=== PATIENT | female | born 1955 | race Caucasian/White ===

== ENCOUNTER 2018-08-27 09:29 | Day surgery (SDC) | payer BC, OTHER ==
[~2018-08-27 09:29] MED LIST: PROPOFOL INJ 200 MG/20 ML VIAL IV ONE
[2018-08-27] MEDS ORDERED: ATROPINE SULFATE INJ 1 MG/10 ML DISP.SYRIN IV ONE (10:51)
[2018-08-27 11:30] VITALS: BP 102/64
--- NOTE | 2018-08-27 12:57 | Operative Report ---
Operative Report DATE OF SURGERY: 08/27/18 Operative Report: The risks, benefits and alternatives of the procedure including the risk of bleeding, perforation requiring surgery have been explained to the patient in detail and informed consent has been obtained. Patient is placed in a left, lateral decubital position. Timeout was called. Propofol medication is administered. Rectal examination is done which did not reveal any masses, tears or fissures. An Olympus videoscope was introduced into the patient's rectum. The scope was then carefully advanced all the way to the cecum. The cecum was identified by the usual anatomical landmarks of the ileocecal valve as well as the appendiceal office. Photodocumentation is obtained. The scope was then sequentially pulled back via the various segments of the colon including the ascending colon, hepatic flexure, transverse colon, splenic flexure, descending colon and finally into the rectosigmoid portions of the colon. Retroflexion maneuver was performed. The risks benefits and alternatives of the procedure explained to the patient in detail and informed consent is obtained.A GIF Olympus video scope was inserted into the patient's mouth and hypopharynx, the esophagus is identified intubated and insufflated ,the scope was then advanced through the esophagus stomach and duodenum, retroflexion maneuver is done, the esophagus stomach and first and second portions of the duodenum examined. PREOPERATIVE DIAGNOSIS: Nausea vomiting, chronic anemia. Rule out GI blood loss. Patient provides a history of previous "" stomach stapling but it is unclear if it is gastric band placement versus Eugenia-en-Y surgery POSTOPERATIVE DIAGNOSIS: Unusual anatomy noted in the stomach with an area of either stricturing or folding at the location of a previous surgery. Biopsies obtained. Poorly prepped colon. No obstructive masses noted. Right colonic inflammation noted status post biopsy. No obvious bleeding sites noted. Internal hemorrhoids OPERATION: Colonoscopy with biopsy. EGD with biopsy SURGEON: ELAINA LAURA ANESTHESIA: LMAC TISSUE REMOVED OR ALTERED: As noted above. COMPLICATIONS: None. ESTIMATED BLOOD LOSS: None. INTRAOPERATIVE FINDINGS: As noted above. PROCEDURE: Patient tolerated the procedure well. No immediate postprocedure complications are noted. Patient discharged in good condition. Discharge date 08/27/2018 Discharge diet: Regular. Discharge activity: Regular. 2-3-week follow-up to discuss findings. Patient is instructed call the office or proceed to the emergency room should there be any further problems or questions. I will went to pathology. She may need barium swallow, upper GI series for further clarification of her anatomy; she may need a surgical referral
== END 2018-08-27 11:30 | disposition home or self-care (01) ==
LOC: END 09:29
PROVIDERS: ATTEND Internal Medicine Gastroenterology
DX: K31.7 Polyp of stomach and duodenum (principal); K29.50 Unspecified chronic gastritis without bleeding; K52.9 Noninfective gastroenteritis and colitis, unspecified; K64.8 Other hemorrhoids; D50.0 Iron deficiency anemia secondary to blood loss (chronic); E78.00 Pure hypercholesterolemia, unspecified; Z79.899 Other long term (current) drug therapy; N18.3 Chronic kidney disease, stage 3 (moderate); R11.2 Nausea with vomiting, unspecified; K31.84 Gastroparesis
CPT/HCPCS: 43239; 45380; 88305 ×2; 88312 ×2; J0461; J2704; 813

== ENCOUNTER → 2019-02-22 | Outpatient (CLI) | payer BC | LOC: WI 09:35 | PROVIDERS: ATTEND Family Medicine | DX: Z12.31 Encounter for screening mammogram for malignant neoplasm of breast (principal) | CPT/HCPCS: 77067 ==

== ENCOUNTER 2019-06-19 09:03 | Day surgery (SDC) | payer BC ==
[~2019-06-19 09:03] MED LIST changes: +CHONDR SU A NA/HYALUR INTRAOC KIT (SURGICARE) ONE; +KETOROLAC TROMETHAMINE 0.45% 4 DROP/0.4 ML DROPERETTE OD PRN; +LIDOCAINE 1%/PHENYLEPHRINE 1.5% 1 ML VIAL ONE; -PROPOFOL INJ 200 MG/20 ML VIAL IV ONE
[2019-06-19] MEDS: TETRACAINE HCL 0.5% OPH SOLN 4 ML OD PRN ×3 (09:24→10:01)
[2019-06-19] MEDS: CYCLOPENTOLATE 0.2%/PHENYLEPHRINE 1% OPH SOLN 2 ML OD PRN ×3 (09:25→09:48)
[2019-06-19] MEDS: BESIFLOXACIN HCL 0.6% OPH SUSP 5 ML BOTTLE OD PRN ×4 (09:25→10:19)
[2019-06-19] MEDS: TROPICAMIDE 1% OPH SOLN 15 ML OD PRN ×3 (09:25→09:48)
[2019-06-19] MEDS ORDERED: MIDAZOLAM 2 MG/2 ML INJ ONE (09:43)
[2019-06-19] MEDS ORDERED: FENTANYL CITRATE INJ/PF 100 MCG/2 ML AMPUL ONE (09:43)
[2019-06-19] MEDS: EPINEPHRINE INJ/PF 1 MG/1 ML AMPULE ONE ×2 (10:07→10:08)
[2019-06-19] MEDS: DORZOLAMIDE HCL 2%/TIMOLOL MALEAT 0.5% OPH SOLN 10 ML OD PRN ×2 (10:08→10:19)
== END 2019-06-19 11:06 | disposition home or self-care (01) ==
LOC: SC 09:03
PROVIDERS: ATTEND Ophthalmology
DX: H25.11 Age-related nuclear cataract, right eye (principal); Z79.899 Other long term (current) drug therapy; Z87.891 Personal history of nicotine dependence
CPT/HCPCS: 66984; 00142; V2632; J2250; J3490 ×2; J0171; J3010; J2370; 142

== ENCOUNTER 2019-07-01 07:58 | Day surgery (SDC) | payer BC ==
[~2019-07-01 07:58] MED LIST changes: -CHONDR SU A NA/HYALUR INTRAOC KIT (SURGICARE) ONE; -KETOROLAC TROMETHAMINE 0.45% 4 DROP/0.4 ML DROPERETTE OD PRN; +KETOROLAC TROMETHAMINE 0.45% 4 DROP/0.4 ML DROPERETTE OS PRN; -LIDOCAINE 1%/PHENYLEPHRINE 1.5% 1 ML VIAL ONE
[2019-07-01] MEDS: CYCLOPENTOLATE 0.2%/PHENYLEPHRINE 1% OPH SOLN 2 ML OS PRN ×3 (08:25→08:45)
[2019-07-01] MEDS: TETRACAINE HCL 0.5% OPH SOLN 4 ML OS PRN ×4 (08:25→09:00)
[2019-07-01] MEDS: TROPICAMIDE 1% OPH SOLN 15 ML OS PRN ×3 (08:25→08:45)
[2019-07-01] MEDS: BESIFLOXACIN HCL 0.6% OPH SUSP 5 ML BOTTLE OS PRN ×4 (08:25→09:17)
[2019-07-01] MEDS ORDERED: FENTANYL CITRATE INJ/PF 100 MCG/2 ML AMPUL ONE ×2 (08:41→09:08)
[2019-07-01] MEDS ORDERED: MIDAZOLAM 2 MG/2 ML INJ ONE ×2 (08:41→09:07)
[2019-07-01] MEDS: CHONDR SU A NA/HYALUR INTRAOC KIT (SURGICARE) ONE ×2 (09:07)
[2019-07-01] MEDS: LIDOCAINE 1%/PHENYLEPHRINE 1.5% 1 ML VIAL ONE ×2 (09:07)
[2019-07-01] MEDS: EPINEPHRINE INJ/PF 1 MG/1 ML AMPULE ONE ×2 (09:07)
[2019-07-01] MEDS: DORZOLAMIDE HCL 2%/TIMOLOL MALEAT 0.5% OPH SOLN 10 ML OS PRN ×2 (09:17)
== END 2019-07-01 09:55 | disposition home or self-care (01) ==
LOC: SC 07:58
PROVIDERS: ATTEND Ophthalmology
DX: H25.12 Age-related nuclear cataract, left eye (principal); Z87.891 Personal history of nicotine dependence; Z98.41 Cataract extraction status, right eye
CPT/HCPCS: 66984; 00142; V2632; J2250; J3490 ×2; J0171; J3010; J2370; 142

== ENCOUNTER 2019-08-21 21:03 | Emergency (ER) | payer BC ==
[2019-08-21 21:12] VITALS: BP 104/69
[2019-08-21] MEDS ORDERED: ONDANSETRON HCL INJ/PF 4 MG/2 ML SDV IV ONE (21:33)
[2019-08-21] MEDS ORDERED: MORPHINE SULFATE 10 MG/ML INJ IV ONE (21:33)
--- NOTE | 2019-08-21 21:34 | ER Document Report ---
ED Medical Screen (RME) - General Chief Complaint: Abdominal Pain Stated Complaint: ABDOMINAL PAIN Time Seen by Provider: 08/21/19 21:28 Primary Care Provider: MAMADOU PADILLA MD [Primary Care Provider] - Follow up as needed Mode of Arrival: Wheelchair Information source: Patient Notes: 63-year-old female patient presenting to the emergency department with epiga stric pain. Patient reports pain started suddenly a few hours prior to arrival. She reports it feels like a sharp stabbing pain in the epigastric area. She denies ever having pain like this before. She denies any associated nausea, vomiting, diarrhea or fever. Exam: Tenderness with mild palpation in the epigastric area and right upper quadrant. Unable to evaluate patient fully as patient is in a seated position in triage. I have greeted and performed a rapid initial assessment of this patient. A comprehensive ED assessment and evaluation of the patient, analysis of test results and completion of the medical decision making process will be conducted by additional ED providers. I have specifically instructed the patient or family members with the patient to immediately return to any nursing staff should anything change in the patient's condition or with their chief complaint. TRAVEL OUTSIDE OF THE [place] IN LAST 30 DAYS: No - Related Data Allergies/Adverse Reactions: No Known Allergies Allergy (Verified 06/14/19 12:20) Past Medical History - Past Medical History Cardiac Medical History: Denies: Hx Coronary Artery Disease, Hx Heart Attack, Hx Hypertension - LOW B/P 100/60 Pulmonary Medical History: Denies: Hx Asthma, Hx Bronchitis, Hx COPD, Hx Pneumonia Neurological Medical History: Denies: Hx Cerebrovascular Accident, Hx Seizures GI Medical History: Denies: Hx Hepatitis, Hx Hiatal Hernia, Hx Ulcer Musculoskeltal Medical History: Denies Hx Arthritis Infectious Medical History: Denies: Hx Hepatitis Past Surgical History: Reports: Hx Hysterectomy. Denies: Hx Mastectomy, Hx Open Heart Surgery, Hx Pacemaker - Immunizations Hx Diphtheria, Pertussis, Tetanus Vaccination: - UNSURE Physical Exam - Vital signs Vitals: Temp Pulse Resp BP Pulse Ox 98.3 F 86 22 H 104/69 100 08/21/19 21:10 08/21/19 21:10 08/21/19 21:10 08/21/19 21:10 08/21/19 21:10 Course - Vital Signs Vital signs: Temp Pulse Resp BP Pulse Ox 98.3 F 86 22 H 104/69 100 08/21/19 21:10 08/21/19 21:10 08/21/19 21:10 08/21/19 21:10 08/21/19 21:10 Doctor's Discharge - Discharge Referrals: MAMADOU PADILLA MD [Primary Care Provider] - Follow up as needed
[2019-08-21 22:19] LABS: ABSOLUTE EOSINOPHILS # (AUTO) 0.2 10^3/uL (0.0-0.6); ABSOLUTE LYMPHOCYTES (AUTO) 2.3 10^3/uL (0.5-4.7); ABSOLUTE MONOCYTES (AUTO) 0.6 10^3/uL (0.1-1.4); ABSOLUTE NEUT (AUTO) 3.4 10^3/uL (1.7-8.2); BASOPHILS % (AUTO) 0.3 % (0-2); EOSINOPHILS % (AUTO) 3.4 % (0-6); HEMATOCRIT 36.9 % (36.0-47.0); HEMOGLOBIN 12.1 g/dL (12.0-15.5); LYMPHOCYTES % (AUTO) 35.5 % (13-45); MEAN CORPUSCULAR HGB CONC 32.9 g/dL (32.0-36.0); MEAN CORPUSCULAR VOLUME 79 fl (80-97); MONOCYTES % (AUTO) 9.1 % (3-13); PLATELET COUNT 154 10^3/uL (150-450); RED BLOOD COUNT 4.66 10^6/uL (3.72-5.28); RED CELL DISTRIBUTION WIDTH 15.1 % (11.5-14.0); SEGMENTED NEUTROPHILS % (AUTO) 51.7 % (42-78); TOTAL CELLS COUNTED % (AUTO) 100 %; WHITE BLOOD COUNT 6.5 10^3/uL (4.0-10.5)
[2019-08-21 22:24] LABS: APPEARANCE,URINE CLEAR; BILIRUBIN,URINE NEGATIVE (NEGATIVE); COLOR,URINE YELLOW; GLUCOSE, URINE NEGATIVE (NEGATIVE); KETONES,URINE NEGATIVE (NEGATIVE); LEUKOCYTE ESTERASE,URINE SMALL (NEGATIVE); NITRITE,URINE NEGATIVE (NEGATIVE); PROTEIN,URINE NEGATIVE (NEGATIVE)
[2019-08-21 22:34] LABS: ALBUMIN 4.3 g/dL (3.5-5.0); ALKALINE PHOSPHATASE 87 U/L (38-126); ANION GAP 8 (5-19); ASPARTATE AMINO TRANSFERASE 79 U/L (14-36); BILIRUBIN,DIRECT 0.3 mg/dL (0.0-0.4); BILIRUBIN,TOTAL 0.4 mg/dL (0.2-1.3); BLOOD UREA NITROGEN 26 mg/dL (7-20); CALCIUM 9.7 mg/dL (8.4-10.2); CARBON DIOXIDE 33 mmol/L (22-30); CHLORIDE 98 mmol/L (98-107); GLUCOSE 103 mg/dL (75-110); POTASSIUM 4.8 mmol/L (3.6-5.0); TOTAL PROTEIN 7.4 g/dL (6.3-8.2)
--- NOTE | 2019-08-22 | RADIOLOGY REPORT (SQ) ---
EXAM DESCRIPTION: Right upper quadrant ultrasound CLINICAL HISTORY: 63 years Female; epigastric pain gastric bypass. Stage III kidney failure. TECHNIQUE: Abdominal ultrasound was performed. COMPARISON: None. FINDINGS: Pancreas: Obscured by overlying bowel gas. Liver: Measures 12.9 cm in length. There is increased echogenicity suggesting fatty liver and overall the liver is not well seen. Portal vein is patent with hepatopedal flow. Gallbladder: Is distended. The wall measures 1.7 mm. No pericholecystic fluid. No sonographic Hernandez's. There may be debris within the gallbladder. Common bile duct: 2.4 mm. Right kidney: Measures 9.1 x 4.6 x 4.7 cm. Blood flow is present in the kidney. There is a simple cyst in the midpole which measures up to 1.6 cm.. No hydronephrosis. Aorta:Visualized portions are within normal limits. IVC: Visualized portions are within normal limits. Ascites: No free fluid. IMPRESSION: 1. Fatty infiltration of the liver. 2. The gallbladder is distended. No definite stones. 3. No right-sided hydronephrosis.
[2019-08-22] MEDS ORDERED: MORPHINE SULFATE 10 MG/ML INJ IV ONE (00:46)
[2019-08-22] MEDS ORDERED: NORMAL SALINE 1000 ML 1,000 ML IV ONE (01:45)
[2019-08-22] MEDS ORDERED: HYDROMORPHONE HCL INJ/PF 2 MG/ML AMPULE IV ONE (01:45)
--- NOTE | 2019-08-22 01:46 | ER Document Report ---
ED GI/ - General Chief Complaint: Upper Abdominal Pain Stated Complaint: ABDOMINAL PAIN Time Seen by Provider: 08/21/19 21:28 Primary Care Provider: MAMADOU PADILLA MD [Primary Care Provider] - Follow up as needed Mode of Arrival: Wheelchair Notes: Patient is a 63-year-old female that comes to the emergency department for chief complaint of sharp pain in her upper abdomen. Pain is in the mid upper abdomen and also wraps around the left side. Patient had demonstrated that it was on the right but she states she only did this because she does not want to touch the left side, the pain is on the left side. Pain started sharply shortly after eating dinner ([place]). She has a history of gastric bypass, hysterectomy, chronic kidney disease, denies medical history otherwise. She denies vomiting, fever, chest pain, or any other complaints. Reports normal recent bowel movements. TRAVEL OUTSIDE OF THE [place] IN LAST 30 DAYS: No - Related Data Allergies/Adverse Reactions: No Known Allergies Allergy (Verified 06/14/19 12:20) Past Medical History - General Information source: Patient - Social History Smoking Status: Former Smoker Drug Abuse: None Lives with: Family Family History: Reviewed & Not Pertinent Patient has suicidal ideation: No Patient has homicidal ideation: No - Past Medical History Cardiac Medical History: Denies: Hx Coronary Artery Disease, Hx Heart Attack, Hx Hypertension - LOW B/P 100/60 Pulmonary Medical History: Denies: Hx Asthma, Hx Bronchitis, Hx COPD, Hx Pneumonia Neurological Medical History: Denies: Hx Cerebrovascular Accident, Hx Seizures GI Medical History: Denies: Hx Hepatitis, Hx Hiatal Hernia, Hx Ulcer Musculoskeletal Medical History: Denies Hx Arthritis Infectious Medical History: Denies: Hx Hepatitis Past Surgical History: Reports: Hx Hysterectomy. Denies: Hx Mastectomy, Hx Open Heart Surgery, Hx Pacemaker - Immunizations Hx Diphtheria, Pertussis, Tetanus Vaccination: - UNSURE Review of Systems - Review of Systems Constitutional: No symptoms reported EENT: No symptoms reported Cardiovascular: No symptoms reported Respiratory: No symptoms reported Gastrointestinal: See HPI Genitourinary: No symptoms reported Female Genitourinary: No symptoms reported Musculoskeletal: No symptoms reported Skin: No symptoms reported Hematologic/Lymphatic: No symptoms reported Neurological/Psychological: No symptoms reported Physical Exam - Vital signs Vitals: Temp Pulse Resp BP Pulse Ox 98.3 F 86 22 H 104/69 100 08/21/19 21:10 08/21/19 21:10 08/21/19 21:10 08/21/19 21:10 08/21/19 21:10 - Notes Notes: GENERAL: Alert, interacts well. Mildly uncomfortable but no severe distress HEAD: Normocephalic, atraumatic. EYES: Pupils equal, round, and reactive to light. Extraocular movements intact. ENT: Oral mucosa moist, tongue midline. Oropharynx unremarkable. Airway patent. LUNGS: Clear to auscultation bilaterally, no wheezes, rales, or rhonchi. No respiratory distress. HEART: Regular rate and rhythm. No murmur ABDOMEN: Tender in the epigastric area and left upper quadrant with some wincing but no severe tenderness. No guarding. Bowel sounds present. Otherwise unremarkable. Right upper quadrant is completely nontender. GENITOURINARY: Deferred EXTREMITIES: Moves all 4 extremities spontaneously. No edema, normal radial and dorsalis pedis pulses bilaterally. No cyanosis. BACK: no cervical, thoracic, lumbar midline tenderness. No saddle anesthesia, normal distal neurovascular exam. Moves all extremities in full range of motion. NEUROLOGICAL: Alert and oriented x3. Normal speech. Cranial nerves II through XII grossly intact. PSYCH: Normal affect, normal mood. SKIN: Warm, dry, normal turgor. No rashes or lesions noted. Course - Re-evaluation Re-evalutation: On exam patient has epigastric pain and actually left upper quadrant pain. Right upper quadrant is completely unremarkable and benign. Ultrasound nonspecific with dilated gallbladder but no overt stones, pericholecystic fluid, gallbladder wall thickening, or dilation of the common bile duct. CBC, chemistry, lipase unremarkable. Urinalysis unremarkable. Patient is still somewhat uncomfortable after medications from triage, because of her exam, surgical history including gastric bypass, discussed with patient and decision was made to perform CAT scan to rule out any acute findings. CAT scan is negative. Patient is feeling much improved on my reevaluation. She was given Protonix as well. I suspect this is upper gastrointestinal information, she is not on any antacids, this is worsened with foods. Discussed findings, patient is requesting discharge, medications, and she does have close follow-up arranged. Discussed return precautions in detail. Patient and family state appreciation and agreement. 08/22/19 05:57 Note: [employer] downtime happened for an update before I could discharge the patient, as result she had a discharge form completed by hand and was prescribed with Zofran, Carafate, Percocet for home on hand written prescriptions. - Vital Signs Vital signs: Temp Pulse Resp BP Pulse Ox 98.3 F 86 22 H 104/69 100 08/21/19 21:10 08/21/19 21:10 08/21/19 21:10 08/21/19 21:10 08/21/19 21:10 - Laboratory Result Diagrams: 08/21/19 21:41 08/21/19 21:41 Laboratory results interpreted by me: 08/21/19 08/21/19 08/21/19 21:41 21:41 21:41 MCV 79 L MCH 26.0 L RDW 15.1 H Carbon Dioxide 33 H BUN 26 H AST 79 H ALT 84 H Urine Urobilinogen 2.0 H Ur Leukocyte Esterase SMALL H Discharge - Discharge Clinical Impression: Upper abdominal pain, LUQ pain Condition: Stable Disposition: HOME, SELF-CARE Referrals: MAMADOU PADILLA MD [Primary Care Provider] - Follow up as needed
--- NOTE | 2019-08-22 03:44 | RADIOLOGY REPORT (SQ) ---
EXAM DESCRIPTION: CT ABDOMEN PELVIS WITH IV CONTRAST COMPLETED DATE/TME: 08/22/2019 01:45 CLINICAL HISTORY: epigastric and LUQ pain, hx gastric bypass COMPARISON: None Available. TECHNIQUE: CT of the abdomen and pelvis performed following IV administration of 92 mL of Omnipaque 300. FINDINGS: Lung Bases: Minimal bibasilar dependent atelectasis. Bones: No destructive bone lesions identified. Abdomen: Liver: The liver has normal size and density. No intrahepatic mass or biliary dilatation. Gallbladder: No calcified gallstones. Spleen, Pancreas, and Adrenal Glands: The spleen, pancreas, and adrenal glands are unremarkable. Kidneys: The kidneys have normal size without evidence of solid mass or hydronephrosis. Right renal cyst. Cortical irregularity inferior pole of the left kidney may be related to previous inflammatory or infectious insult. Vasculature: The aorta and IVC have normal caliber and position. The portal vein is patent. The proximal visceral and renal arteries are patent. Stomach: Prior gastric bypass surgery. Other: No free intraperitoneal air. No free fluid or lymphadenopathy. Pelvis: Bladder: Urinary bladder is unremarkable. Bowel: No dilated loops of large or small bowel. Appendix: Not identified. Pelvis: Prior hysterectomy. IMPRESSION: 1. No acute inflammatory or obstructive process identified. This exam was performed according to our departmental dose-optimization program, which includes automated exposure control, adjustment of the mA and/or kV according to patient size and/or use of iterative reconstruction technique.
[2019-08-22] MEDS ORDERED: PANTOPRAZOLE SODIUM 40 MG VIAL IV ONE ×2 (03:57→04:26)
[2019-08-22] MEDS ORDERED: HYDROCODONE/ACETAMINOPHEN 5-325 MG (6 TAB/ER DISP) PO PRN (03:57)
[2019-08-22] MEDS ORDERED: ONDANSETRON ODT 4 MG TAB (6 TAB/ER DISP) PO PRN (03:57)
[2019-08-22] MEDS ORDERED: HYDROMORPHONE HCL INJ/PF 2 MG/ML AMPULE ONE (04:26)
[2019-08-22] MEDS ORDERED: ONDANSETRON ODT 4 MG TAB (6 TAB/ER DISP) ONE (04:27)
[2019-08-22] MEDS ORDERED: HYDROCODONE/ACETAMINOPHEN 5-325 MG (6 TAB/ER DISP) ONE (04:27)
== END 2019-08-22 05:59 | disposition home or self-care (01) ==
LOC: ER 21:03
DX: R10.12 Left upper quadrant pain (principal); R10.13 Epigastric pain; K82.8 Other specified diseases of gallbladder; R10.816 Epigastric abdominal tenderness; R10.812 Left upper quadrant abdominal tenderness; Z98.84 Bariatric surgery status; Z87.891 Personal history of nicotine dependence
CPT/HCPCS: 36415; 83690; 85025; 80053; 81001; 76705; 74177; J2270 ×2; J1170; J2405; J7030; 96361; 96374; 96375; 96376; 99284

== ENCOUNTER → 2019-09-25 | Outpatient (CLI) | payer BC ==
--- NOTE | 2019-09-25 10:20 | RADIOLOGY REPORT (SQ) ---
EXAM DESCRIPTION: CTA CHEST COMPLETED DATE/TIME: 09/25/2019 10:00 am REASON FOR STUDY: SHORTNESS OF BREATH R06.02 SHORTNESS OF BREATH COMPARISON: None. TECHNIQUE: CT scan of the chest performed using helical scanning technique with dynamic intravenous contrast injection. Images reviewed with lung, soft tissue and bone windows. Reconstructed coronal and sagittal MPR images reviewed. Additional 3 dimensional post-processing performed to develop Maximal Intensity Projection images (MD P). All images stored on PACS. All CT scanners at this facility use dose modulation, iterative reconstruction, and/or weight based d osing when appropriate to reduce radiation dose to as low as reasonably achievable (ALARA). [facility]: Dose Right [facility]: CareDose [facility]: Dose Right [facility]: Teradose 4D [facility]: BA Systems CONTRAST TYPE AND DOSE: contrast/concentration: Isovue 350.00 mg/ml; Total Contrast Delivered: 47.0 ml; Total Saline Delivered: 77.0 ml Contrast bolus optimized for the pulmonary arteries. Not diagnostic for the aorta. RENAL FUNCTION: GFR > 60. RADIATION DOSE: CT Rad equipment meets quality standard of care and radiation dose reduction techniq ues were employed. CTDIvol: 5.6 - 8.5 mGy. DLP: 356 mGy-cm. . LIMITATIONS: None. FINDINGS: LUNGS AND PLEURA: No masses, infiltrates, or pneumothorax. No pleural effusions or pleura l calcifications. AORTA AND GREAT VESSELS: No aneurysm. Contrast bolus not optimized for the aorta. HEART: No pericardial effusion. Moderate to marked coronary artery calcifications. PULMONARY ARTERIES: No emboli visualized in the main pulmonary arteries or the segmental branches. HILAR AND MEDIASTINAL STRUCTURES: No identified masses or abnormal nodes. HARDWARE: None in the chest. UPPER ABDOMEN: Gastric bypass. Limited exam. THYROID AND OTHER SOFT TISSUES: No masses. No adenopathy. BONES: No acute or significant finding. 3D MIPS: Confirm above findings. OTHER: No other significant finding. IMPRESSION: No PE. No acute findings. COMMENT: Quality ID # [id number]: Final reports with documentation of one or more dose reduction techniques (e.g., Automated exposure control, adjustment of the mA and/or kV according to patient size, use of iterative reconstruction technique) TECHNICAL DOCUMENTATION: JOB ID: [id number] 2010 [employer]- All Rights Reserved Reading location - IP/workstation name: [email or web address]
== END ==
LOC: RAD 09:34
PROVIDERS: ATTEND Family Medicine
DX: R06.02 Shortness of breath (principal)
CPT/HCPCS: 71275; 82565

== ENCOUNTER → 2019-10-04 | Outpatient (CLI) | payer BC ==
--- NOTE | 2019-10-04 16:49 | EKG REPORT ---
SEVERITY:- BORDERLINE ECG - SINUS RHYTHM TALL R WAVE IN V2, CONSIDER RVH OR PMI : Confirmed by: Larissa Daniel 04-Oct-2019 16:48:53
== END ==
LOC: OD 13:17
PROVIDERS: ATTEND Physician Assistant
DX: R07.9 Chest pain, unspecified (principal); R06.02 Shortness of breath
CPT/HCPCS: 36415; 83880; 93005; 93010

== ENCOUNTER → 2019-12-04 | Outpatient (CLI) | payer BC ==
[2019-12-04 10:36] LABS: HEMATOCRIT 31.8 % (36.0-47.0); HEMOGLOBIN 10.7 g/dL (12.0-15.5); MEAN CORPUSCULAR HEMOGLOBIN 27.2 pg (27.0-33.4); MEAN CORPUSCULAR HGB CONC 33.5 g/dL (32.0-36.0); MEAN CORPUSCULAR VOLUME 81 fl (80-97); RED BLOOD COUNT 3.92 10^6/uL (3.72-5.28); RED CELL DISTRIBUTION WIDTH 17.1 % (11.5-14.0); WHITE BLOOD COUNT 5.2 10^3/uL (4.0-10.5)
[2019-12-04 10:37] LABS: INTERNATIONAL RATION (INR) 1.03; PROTHROMBIN TIME 13.5 SEC (11.4-15.4)
[2019-12-04 10:38] LABS: PARTIAL THROMBOPLASTIN TIME 27.6 SEC (23.5-35.8)
[2019-12-04 10:50] LABS: ALBUMIN 3.7 g/dL (3.5-5.0); ALKALINE PHOSPHATASE 65 U/L (38-126); ANION GAP 6 (5-19); ASPARTATE AMINO TRANSFERASE 75 U/L (14-36); BILIRUBIN,TOTAL 0.4 mg/dL (0.2-1.3); BLOOD UREA NITROGEN 13 mg/dL (7-20); CALCIUM 8.9 mg/dL (8.4-10.2); CARBON DIOXIDE 30 mmol/L (22-30); CHLORIDE 104 mmol/L (98-107); CHOLESTEROL 125.49 mg/dL (0-200); GLUCOSE 87 mg/dL (75-110); POTASSIUM 4.3 mmol/L (3.6-5.0); TRIGLYCERIDES 80 mg/dL (<150)
[2019-12-04 11:01] LABS: DIRECT LDL 68 mg/dL (<100)
[2019-12-04 11:06] LABS: PLATELET COUNT 99 10^3/uL (150-450)
== END ==
LOC: OD 09:21
PROVIDERS: ATTEND Physician Assistant
DX: E78.5 Hyperlipidemia, unspecified (principal); R00.2 Palpitations; Z01.810 Encounter for preprocedural cardiovascular examination; R07.89 Other chest pain; Z79.01 Long term (current) use of anticoagulants
CPT/HCPCS: 36415; 80048; 80061; 80076; 83735; 84443; 85027; 85610; 85730

== ENCOUNTER → 2020-01-07 | Outpatient (CLI) | payer BC ==
[2020-01-07 13:35] LABS: APPEARANCE,URINE CLEAR; BILIRUBIN,URINE NEGATIVE (NEGATIVE); COLOR,URINE STRAW; GLUCOSE, URINE NEGATIVE (NEGATIVE); KETONES,URINE NEGATIVE (NEGATIVE); LEUKOCYTE ESTERASE,URINE NEGATIVE (NEGATIVE); NITRITE,URINE NEGATIVE (NEGATIVE); PROTEIN,URINE NEGATIVE (NEGATIVE); UROBILINOGEN,URINE NEGATIVE mg/dL (<2.0)
[2020-01-07 13:55] LABS: IRON(TIBC) 108.4 ug/dL (37-170)
== END ==
LOC: OD 12:34
PROVIDERS: ATTEND Physician Assistant
DX: D64.9 Anemia, unspecified (principal)
CPT/HCPCS: 36415; 81001; 82728; 83540; 83550; 84466

== ENCOUNTER → 2020-03-11 | Outpatient (CLI) | payer BC ==
[~2020-03-11] MED LIST changes: +ALBUTEROL SULFATE 0.083% NEB 2.5 MG/3 ML AMPUL NEB ONE; -KETOROLAC TROMETHAMINE 0.45% 4 DROP/0.4 ML DROPERETTE OS PRN
--- NOTE | 2020-03-11 13:51 | RADIOLOGY REPORT (SQ) ---
EXAM DESCRIPTION: CHEST 2 VIEWS IMAGES COMPLETED DATE/TIME: 03/11/2020 12:58 pm REASON FOR STUDY: R06.02 SHORTNESS OF BREATH COMPARISON: CT of the chest from 09/25/2019. EXAM PARAMETERS: NUMBER OF VIEWS: Two views. TECHNIQUE: PA and lateral views of the chest were obtained. RADIATION DOSE: NA LIMITATIONS: None. FINDINGS: LUNGS AND PLEURA: No consolidation, pleural effusion or pneumothorax. MEDIASTINUM AND HILAR STRUCTURES: No mediastinal or hilar contour abnormality. HEART AND VASCULAR STRUCTURES: The cardiac silhouette and pulmonary vasculature are within normal villasenor its. BONES: No acute findings. HARDWARE: None in the chest. OTHER: No other finding. IMPRESSION: No acute cardiopulmonary process. TECHNICAL DOCUMENTATION: JOB ID: [id number] 2010 [employer]- All Rights Reserved Reading location - IP/workstation name: [email or web address]
--- NOTE | 2020-03-12 14:27 | Pulmonary Function Test ---
Pulmonary Function Test Date of Procedure:: 03/11/20 - Received 03/12/20 INDICATION:: Dyspnea Referring Provider: ILIANA Kaufman Sinker Winder: Kaitlin Timmons DATA SUPPORT ANALYST - Report Spirometry: Spirometry: pre-FVC: 2.74 L 89% post-FVC: 2.70 L 88% pre-FEV:1 2.14 L 87% post-FEV1: 2.31 L 94% pre-FEV1/FVC %: 78 post-FEV1/FVC%: 85 predicted: 82 [id number]%: 2.03 L 78% [id number]%: 2.64 L 102% Diffusion Capactity: DLCO: 12.2 56% DLCO/VA: 3.63 95% Impression: This study does not meet criteria for obstructive ventilatory defect. Small airways disease is demonstrated with a good response to bronchodilator therapy. Moderate decrease in diffusion capacity.
== END ==
LOC: RT 11:56
PROVIDERS: ATTEND Physician Assistant
DX: R06.02 Shortness of breath (principal)
CPT/HCPCS: 71046; 94729; 94060; J7613

== ENCOUNTER → 2020-07-10 | Outpatient (CLI) | payer BC ==
[2020-07-10 11:38] VITALS: BP 97/56
--- NOTE | 2020-07-10 11:38 | ER RDC ASSESSMENT REPORT ---
Intake - In the Last 14 days Have you traveled outside [place]?: No Have you been in close contact with someone CONFIRMED: Yes Worked in Healthcare?: No - Symptoms Subjective Fever(Fountain feverish): No Chills: No Muscule Aches: No Runny Nose: No Sore Throat: No Cough (New or worsening chronic cough): No Shortness of breath: No Nausea or Vomiting: No Headache: No Abdominal Pain: No Diarrhea(3 or more loose stools in last 24 hours): No - Do you have any of the following Chronic lung disease: Asthma or emphysema or COPD: No Cystic Fibrosis: No Diabetes: No High Blood Pressure: No Cardiovascular Disease: No Chronic Kidney Disease: Yes Chronic Liver Disease: No Chronic blood disorder like Sickle Cell Disease: No Weak immune system due to disease or medication: No Neurologic condition that limits movement: No Developmental delay - Moderate to Severe: No Morbid Obesity (>100 pounds over ideal weight): No - Objective Temperature: 97.8 F Pulse Rate: 16 Respiratory Rate: 96 Blood Pressure: 97/56 O2 Sat by Pulse Oximetry: 96 Objective: Given above, testing performed: covid General - General Stated Complaint: Asymptomatic Covid screen Time Seen by Provider: 07/10/20 11:15 Mode of Arrival: Ambulatory Information source: [facility] Notes: Patient presents to clinic for COVID-19 testing after coming in close contact with another COVID 19 positive individual. Patient is asymptomatic. They deny any cough, shortness of breath, fever, chills, muscle aches, rhinorrhea, sore throat, nausea or vomiting, headache, abdominal pain or diarrhea. Patient has no acute medical concerns. - Related Data Allergies/Adverse Reactions: No Known Allergies Allergy (Verified 06/14/19 12:20) Past Medical History - General Information source: Patient - Social History Smoking Status: Never Smoker Family History: Reviewed & Not Pertinent - Past Medical History Cardiac Medical History: Reports: None Denies: Hx Coronary Artery Disease, Hx Heart Attack, Hx Hypertension - LOW B/P 100/60 Pulmonary Medical History: Reports: None Denies: Hx Asthma, Hx Bronchitis, Hx COPD, Hx Pneumonia EENT Medical History: Reports: None Neurological Medical History: Reports: None. Denies: Hx Cerebrovascular Accident, Hx Seizures Endocrine Medical History: Reports: None Renal/ Medical History: Reports: Other - CKD stage III Malignancy Medical History: Reports: None GI Medical History: Reports: None. Denies: Hx Hepatitis, Hx Hiatal Hernia, Hx Ulcer Musculoskeletal Medical History: Reports None, Denies Hx Arthritis Skin Medical History: Reports None Psychiatric Medical History: Reports: None Traumatic Medical History: Reports: None Infectious Medical History: Reports: None. Denies: Hx Hepatitis Past Surgical History: Reports: Hx Hysterectomy, Hx Lumpectomy. Denies: Hx Mastectomy, Hx Open Heart Surgery, Hx Pacemaker Physical Exam - General General appearance: Appears well, Alert In distress: None Notes: PHYSICAL EXAMINATION: GENERAL: Well-appearing and in no acute distress. HEAD: Atraumatic, normocephalic. EYES: sclera anicteric, conjunctiva are normal. ENT: nares patent. Moist mucous membranes. NECK: Normal range of motion, supple without lymphadenopathy. LUNGS: No increased work of breathing. Lung sounds CTAB and equal. No wheezes rales or rhonchi. HEART: Regular rate and rhythm without murmurs. ABDOMEN: Soft, nontender, normal bowel sounds, no guarding. EXTREMITIES: Normal range of motion, no pitting edema. No cyanosis. NEUROLOGICAL: A&O x 3. Normal speech. PSYCH: Normal mood, normal affect. SKIN: Warm, Dry, normal turgor, no rashes or lesions noted Patient Education/Counseling Counseling/Education: Patient presents for COVID 19 testing after close exposure to another person who has tested positive for COVID 19. Patient is asymptomatic at this time. Patient does not have emergency worrying symptoms such as difficulty breathing, shortness of breath, chest pain, pressure, confusion or cyanosis. Patient appears suitable for discharge as vital signs are stable and patient is nontoxic in appearance. Good return precautions have been discussed with patient, patient verbalized understanding and is agreeable with discharge plan of care at this time. Guidance for worsening S/SX: As a person under investigation for Covid 19, the [place] department of Health and Human Services, division of public health advises you to adhere to the following guidance until your test results are reported to you. If your test result is positive, you will receive additional information from your provider and your local health department at that time. Remain at home until you are cleared by the health provider or public health authorities. Keep a log of visitors to your home, notify any visitors to your home of your isolation status. If you plan to move to a new address or leave the county, notify the local health department in your County. Call your doctor or seek care if you have an urgent medical need. Before seeking medical care, call ahead to get instructions from the provider before arriving at the medical office clinic or hospital. Notify them that you are being tested for the virus that causes Covid 19 so that arrangements can be made, as necessary, to prevent transmission to others in the healthcare setting. Next, notify the local health department in your county. If a medical emergency arises and you need to call 911, inform the first responders that you are being tested for the virus that causes Covid 19. Next, notify the local health department in your county. RDC Discharge - Discharge Clinical Impression: Encounter for screening laboratory testing for COVID-19 virus Condition: Good Disposition: Home; Selfcare
== END ==
LOC: RDC 10:32
PROVIDERS: ATTEND Registered Nurse
DX: Z20.822 Contact with and (suspected) exposure to COVID-19 (principal); N18.30 Chronic kidney disease, stage 3 unspecified
CPT/HCPCS: U0003; C9803; 87635; 99202; 99211